=== PATIENT | female | born 1975 | race Caucasian/White ===

== ENCOUNTER 2020-12-15 14:35 | Inpatient (IN) | payer OTHER ==
[2020-12-15 15:29] VITALS: BMI 28.8
[2020-12-15] MEDS ORDERED: NALOXONE HCL 0.4 MG/ML VIAL IM PRN (20:46)
[2020-12-15] MEDS ORDERED: ACETAMINOPHEN 325 MG TABLET (FP) PO PRN ×2 (20:46)
[2020-12-15] MEDS ORDERED: NALOXONE (NARCAN) HCL 4 MG/0.1 ML SPRAY NS PRN (20:46)
[2020-12-15] MEDS ORDERED: DICYCLOMINE HCL 10 MG CAPSULE PO PRN (20:46)
[2020-12-15] MEDS ORDERED: MAG HYDROX/AL HYDROX/SIMETH 30 ML UNIT-DOSE CUP PO PRN (20:46)
[2020-12-15] MEDS ORDERED: MENTHOL/PHENOL 1 EACH UD MM PRN (20:46)
[2020-12-15] MEDS ORDERED: cloNIDine HCL 0.1 MG TABLET PO PRN (20:46)
[2020-12-15] MEDS ORDERED: guaiFENesin 200 MG/10 ML 10 ML UNIT-DOSE CUPS PO PRN (20:46)
[2020-12-15] MEDS ORDERED: diazePAM 5 MG TABLET PO PRN (20:46)
[2020-12-15] MEDS ORDERED: BISMUTH SUBSALICYLATE 524 MG/30 ML UD PO PRN (20:46)
[2020-12-15] MEDS ORDERED: P-EPHED 60MG/TRIPROLIDI 2.5MG TABLET PO PRN (20:46)
[2020-12-15] MEDS ORDERED: METHADONE HCL 10 MG TABLET (FOR DETOX USE ONLY) PO ONE (20:46)
[2020-12-15] MEDS ORDERED: NICOTINE POLACRILEX 2 MG GUM BUC PRN (20:46)
[2020-12-15] MEDS ORDERED: MAGNESIUM HYDROX 2400MG/30ML ORAL SUSPENSION 30 ML CUP PO PRN (20:46)
[2020-12-15] MEDS ORDERED: MAGNESIUM CITRATE 300 ML BOTTLE PO PRN (20:46)
[2020-12-15] MEDS: diazePAM 5 MG TABLET PO SCH (23:03)
[2020-12-15] MEDS: THIAMINE HCL 100 MG TABLET (FP) PO SCH (23:06)
[2020-12-15] MEDS: MELATONIN 5 MG TABLETS PO SCH (23:06)
[2020-12-16] MEDS: diazePAM 5 MG TABLET PO SCH ×4 (05:06→22:03)
[2020-12-16] MEDS ORDERED: METHADONE HCL 10 MG TABLET (FOR DETOX USE ONLY) ONE (09:25)
[2020-12-16] MEDS ORDERED: METHADONE HCL 5 MG TABLET (FOR DETOX USE ONLY) ONE (09:26)
[2020-12-16] MEDS ORDERED: METHADONE (DETOX) 20 MG, METHADONE (DETOX) 5 MG PO ONE (10:00)
[2020-12-16 10:12] LABS: BLOOD UREA NITROGEN 14.6 mg/dL (7-18); CALCIUM 8.6 mg/dL (8.5-10.1)
[2020-12-16 10:14] LABS: HEMATOCRIT 36.9 % (32.4-45.2); HEMOGLOBIN 12.5 GM/dL (10.7-15.3); MCH 29.8 pg (25.7-33.7); MEAN CELL VOLUME 87.6 fl (80-96); MEAN PLT VOLUME 8.9 fl (7.5-11.1); PLATELET COUNT 283 K/MM3 (134-434); RBC 4.21 M/mm3 (3.60-5.2); RDW 14.8 % (11.6-15.6)
[2020-12-16 10:15] LABS: ALBUMIN 3.2 g/dl (3.4-5.0); CREATININE 0.7 mg/dL (0.55-1.3)
[2020-12-16] MEDS: PRENATAL VITAMINS W/ FOLIC ACID TABLET (FP) PO SCH (10:15)
[2020-12-16] MEDS: NICOTINE 21 MG/24 HOURS TOPICAL PATCH TD SCH (10:15)
[2020-12-16 10:16] LABS: BILIRUBIN,TOTAL 0.1 mg/dL (0.2-1)
[2020-12-16 10:19] LABS: TOT PROT 6.4 g/dl (6.4-8.2)
[2020-12-16] MEDS: METHOCARBAMOL 500 MG TABLET PO PRN (17:08)
[2020-12-16] MEDS: THIAMINE HCL 100 MG TABLET (FP) PO SCH (22:02)
[2020-12-16] MEDS: MELATONIN 5 MG TABLETS PO SCH (22:02)
[2020-12-17] MEDS: ONDANSETRON *ODT* 4 MG TABLET SL PRN ×2 (03:12→10:31)
[2020-12-17] MEDS: diazePAM 5 MG TABLET PO SCH ×3 (06:17→22:09)
[2020-12-17] MEDS ORDERED: METHADONE HCL 10 MG TABLET (FOR DETOX USE ONLY) PO ONE (10:00)
[2020-12-17] MEDS: PRENATAL VITAMINS W/ FOLIC ACID TABLET (FP) PO SCH (10:30)
[2020-12-17] MEDS: NICOTINE 21 MG/24 HOURS TOPICAL PATCH TD SCH (10:30)
[2020-12-17] MEDS: IBUPROFEN 400 MG TABLET (FP) PO PRN (14:50)
[2020-12-17] MEDS: MELATONIN 5 MG TABLETS PO SCH (22:09)
[2020-12-17] MEDS: THIAMINE HCL 100 MG TABLET (FP) PO SCH (22:10)
[2020-12-18] MEDS: diazePAM 5 MG TABLET PO SCH ×2 (07:08→17:06)
[2020-12-18] MEDS ORDERED: METHADONE HCL 10 MG TABLET (FOR DETOX USE ONLY) ONE (09:49)
[2020-12-18] MEDS ORDERED: METHADONE HCL 5 MG TABLET (FOR DETOX USE ONLY) ONE (09:49)
[2020-12-18] MEDS: PRENATAL VITAMINS W/ FOLIC ACID TABLET (FP) PO SCH (09:57)
[2020-12-18] MEDS: NICOTINE 21 MG/24 HOURS TOPICAL PATCH TD SCH (09:59)
[2020-12-18] MEDS ORDERED: METHADONE (DETOX) 10 MG, METHADONE (DETOX) 5 MG PO ONE (10:00)
[2020-12-18] MEDS ORDERED: cloNIDine HCL 0.1 MG TABLET PO ONE (12:10)
[2020-12-18] MEDS: FLUTICASONE PROP 0.05% 16 GM NASAL SPRAY NS SCH ×2 (14:05→22:15)
[2020-12-18] MEDS: METHOCARBAMOL 500 MG TABLET PO PRN ×2 (17:05→23:11)
[2020-12-18] MEDS: IBUPROFEN 400 MG TABLET (FP) PO PRN (17:05)
[2020-12-18] MEDS ORDERED: MASKS NR ONE (20:23)
[2020-12-18] MEDS: THIAMINE HCL 100 MG TABLET (FP) PO SCH (22:15)
[2020-12-18] MEDS: MELATONIN 5 MG TABLETS PO SCH (22:16)
[2020-12-19] MEDS: ONDANSETRON *ODT* 4 MG TABLET SL PRN (05:54)
[2020-12-19] MEDS ORDERED: diazePAM 5 MG TABLET PO ONE (06:00)
[2020-12-19 06:06] LABS: SARS-CoV-2 NAA Not Detected (Not Detected)
[2020-12-19] MEDS ORDERED: METHADONE HCL 10 MG TABLET (FOR DETOX USE ONLY) PO ONE (10:00)
[2020-12-19] MEDS: FLUTICASONE PROP 0.05% 16 GM NASAL SPRAY NS SCH (10:18)
[2020-12-19] MEDS: PRENATAL VITAMINS W/ FOLIC ACID TABLET (FP) PO SCH (10:18)
[2020-12-19] MEDS: NICOTINE 21 MG/24 HOURS TOPICAL PATCH TD SCH (10:19)
[2020-12-19] MEDS ORDERED: TRIMETHOBENZAMIDE HCL 300 MG CAPSULE PO PRN (11:49)
[2020-12-19] MEDS ORDERED: cloNIDine HCL 0.1 MG TABLET PO ONE (11:57)
[2020-12-19] MEDS ORDERED: PANTOPRAZOLE 20 MG TABLET PO SCH (12:15)
[2020-12-19 13:35] VITALS: BP 125/78; PULSE 108; TEMP 97.3
[2020-12-19] MEDS ORDERED: cloNIDine HCL 0.1 MG TABLET PO SCH (22:00)
[2020-12-20] MEDS ORDERED: METHADONE HCL 5 MG TABLET (FOR DETOX USE ONLY) PO ONE (06:00)
== END 2020-12-19 16:40 | disposition home or self-care (01) | DRG 773 ==
LOC: YASAS 14:35 → Y3N 20:35
PROVIDERS: ADMIT Allergy & Immunology; ATTEND Allergy & Immunology
PROC: HZ2ZZZZ Detoxification Services for Substance Abuse Treatment (ICD-10-PCS; principal; 2020-12-15)
DX: F11.23 Opioid dependence with withdrawal (principal); F10.230 Alcohol dependence with withdrawal, uncomplicated; F14.20 Cocaine dependence, uncomplicated; F19.24 Other psychoactive substance dependence with psychoactive substance-induced mood disorder; K21.9 Gastro-esophageal reflux disease without esophagitis; M17.0 Bilateral primary osteoarthritis of knee; R03.0 Elevated blood-pressure reading, without diagnosis of hypertension; Z91.011 Allergy to milk products
CPT/HCPCS: 36415; 80053; 81025; 85027; 86780; 93005; 93010; C9803; J0735; Q0162; U0003; U0005